=== PATIENT | female | born 1965 | race Caucasian/White ===

== ENCOUNTER 2016-04-09 06:10 | Emergency (ER) | payer BC ==
[~2016-04-09] VITALS: Ht 167.6 cm; Wt 91.9 kg
[~2016-04-09 06:10] MED LIST: AMLODIPINE BESY10 MG PO; ASPIRIN325 MG PO; BENICAR HCT 401 EACH PO; CELECOXIB200 MG PO; CYANOCOBALAM1000 MCG PO; ELIQUIS5 MG PO; ENDOCET 5-3251 EACH PO; FOLIC ACID PO; FOLIC ACID0.4 MG PO; FOLIC ACID0.8 MG PO; IBUPROFEN800 MG PO; LIPITOR10 MG PO; LIPITOR20 MG PO; LO-DOSE ASPIRIN81 M2 PO; LOPRESSOR25 MG PO; LOPRESSOR50 MG PO; METOPROLOL TART50 MG PO; NITROSTAT0.4 MG SL; OMEPRAZOLE20 M2 PO; POTASSIUM-9999 MG PO; PROGESTERONE200 MG PO; SOTALOL AF80 MG PO; SOTALOL80 MG PO; TRIBENZOR 20-51 EAC1 PO; TYLENOL EXTRA500 MG PO; VITAMIN B-12 PO; VITAMIN B12-FO1 EACH PO
[2016-04-09 07:04] LABS: HEMATOCRIT 42.1 % (36.0-46.0); MCH 29.7 PG (29.0-34.0); MCHC 34.2 G/DL (30.0-36.0); MCV 86.8 FL (83-99); MEAN PLAT.VOLUME 9.7 uM^3 (9.5-12.4); PLATELET COUNT 295 K/uL (156-360); RBC DIS.WIDTH-SD 37.5 % (39-53); RED BLOOD COUNT 4.85 M/uL (3.80-5.20); WHITE BLOOD COUNT 8.2 K/uL (4.1-10.2)
[2016-04-09 07:45] LABS: ANION GAP 8 MEQ/L (2-14); CHLORIDE 101 MEQ/L (99-109); GFR ESTIMATE (CALCULATED) > 59 mL/min/; GLUCOSE 120 mg/dL (70-99); POTASSIUM 3.6 MEQ/L (3.7-5.4); SAMPLE HEMOLYSIS CHECK 0; SAMPLE ICTERIC CHECK 0; SAMPLE LIPEMIA CHECK 0; SODIUM 137 MEQ/L (136-147); TROP-I INTERPRETATION NEGATIVE; TROPONIN-I < 0.01 ng/mL (0.0-0.30); UREA NITROGEN (BUN) 12 mg/dL (9-23)
[2016-04-09 08:46] VITALS: BP 117/69
== END 2016-04-09 08:47 | disposition home or self-care (01) ==
LOC: EME 06:10
PROVIDERS: Emergency Medicine
PROC: 5A2204Z Restoration of Cardiac Rhythm, Single (ICD-10-PCS; principal; 2016-04-09)
DX: I48.91 Unspecified atrial fibrillation (principal); I10 Essential (primary) hypertension; E78.5 Hyperlipidemia, unspecified; Z95.1 Presence of aortocoronary bypass graft; Z79.01 Long term (current) use of anticoagulants; Z79.82 Long term (current) use of aspirin
CPT/HCPCS: 80048; 84484; 85027; 93005; 99281; 99285

== ENCOUNTER 2016-05-07 20:31 | Emergency (ER) | payer BC ==
[~2016-05-07] VITALS: Ht 167.6 cm; Wt 94.2 kg
[2016-05-07 21:02] LABS: MCH 29.3 PG (29.0-34.0); MCHC 33.4 G/DL (30.0-36.0); MCV 87.8 FL (83-99); MEAN PLAT.VOLUME 9.7 uM^3 (9.5-12.4); PLATELET COUNT 359 K/uL (156-360); RBC DIS.WIDTH-CV 11.8 % (11.8-14.6); RBC DIS.WIDTH-SD 37.7 % (39-53); RED BLOOD COUNT 5.01 M/uL (3.80-5.20)
[2016-05-07 21:08] LABS: INTER. NORMALIZED RATIO 1.1; PROTHROMBIN TIME 10.8 (9.2-11.2); PTT 30.8 (25-32); WHITE BLOOD COUNT 12.3 K/uL (4.1-10.2)
[2016-05-07 21:09] LABS: CHLORIDE 101 mEq/L (99-109); POTASSIUM 3.4 mEq/L (3.7-5.4); SODIUM 140 mEq/L (136-147)
[2016-05-07 21:10] LABS: GLUCOSE 119 mg/dL (70-99)
[2016-05-07 21:12] LABS: ANION GAP 12 MEQ/L (2-14)
[2016-05-07 21:14] LABS: GFR ESTIMATE (CALCULATED) > 59 mL/min/
[2016-05-07 21:15] LABS: UREA NITROGEN (BUN) 15 mg/dL (9-23)
[2016-05-07 21:18] LABS: TROP-I INTERPRETATION NEGATIVE; TROPONIN-I < 0.01 ng/mL (0.0-0.30)
[2016-05-07 21:22] LABS: QUANTITATIVE HCG < 4.0 MIU/ML
[2016-05-07 23:35] VITALS: BP 126/80
== END 2016-05-07 23:40 | disposition home or self-care (01) ==
LOC: EME 20:31
PROVIDERS: Emergency Medicine
PROC: 5A2204Z Restoration of Cardiac Rhythm, Single (ICD-10-PCS; principal; 2016-05-07)
DX: I48.91 Unspecified atrial fibrillation (principal); E87.6 Hypokalemia; R00.2 Palpitations; I10 Essential (primary) hypertension; R06.02 Shortness of breath; E78.5 Hyperlipidemia, unspecified; Z79.01 Long term (current) use of anticoagulants; Z79.82 Long term (current) use of aspirin; Z95.1 Presence of aortocoronary bypass graft
CPT/HCPCS: 71010; 80048; 84484; 84702; 85027; 85610; 85730; 93005; 99281; 99285; J7040

== ENCOUNTER 2016-06-18 19:20 | Emergency (ER) | payer BC ==
[~2016-06-18] VITALS: Ht 167.6 cm; Wt 92.0 kg
[2016-06-18 19:53] LABS: HEMATOCRIT 46.5 % (36.0-46.0); MCH 29.5 PG (29.0-34.0); MCHC 33.8 G/DL (30.0-36.0); MCV 87.4 FL (83-99); MEAN PLAT.VOLUME 9.5 uM^3 (9.5-12.4); PLATELET COUNT 349 K/uL (156-360); RBC DIS.WIDTH-CV 12.2 % (11.8-14.6); RBC DIS.WIDTH-SD 38.9 % (39-53); RED BLOOD COUNT 5.32 M/uL (3.80-5.20); WHITE BLOOD COUNT 11.3 K/uL (4.1-10.2)
[2016-06-18] MEDS ORDERED: KLOR-CON SPRINK8 MEQ PO (19:56)
[2016-06-18 20:05] LABS: CHLORIDE 102 mEq/L (99-109); POTASSIUM 3.7 mEq/L (3.7-5.4); SODIUM 139 mEq/L (136-147)
[2016-06-18 20:07] LABS: GLUCOSE 146 mg/dL (70-99)
[2016-06-18 20:08] LABS: ANION GAP 13 MEQ/L (2-14)
[2016-06-18 20:11] LABS: GFR ESTIMATE (CALCULATED) > 59 mL/min/
[2016-06-18 20:12] LABS: UREA NITROGEN (BUN) 11 mg/dL (9-23)
[2016-06-18 20:18] LABS: TROP-I INTERPRETATION NEGATIVE; TROPONIN-I < 0.01 ng/mL (0.0-0.30)
[2016-06-18 20:25] LABS: INTER. NORMALIZED RATIO 1.1; PROTHROMBIN TIME 10.7 (9.2-11.2); PTT 31.6 (25-32)
[2016-06-18 23:47] LABS: TROP-I INTERPRETATION NEGATIVE; TROPONIN-I 0.08 ng/mL (0.0-0.30)
[2016-06-19 00:10] VITALS: BP 117/96
== END 2016-06-19 00:11 | disposition home or self-care (01) ==
LOC: EME 19:20
PROVIDERS: Emergency Medicine
PROC: 5A2204Z Restoration of Cardiac Rhythm, Single (ICD-10-PCS; principal; 2016-06-18)
DX: I48.91 Unspecified atrial fibrillation (principal); I10 Essential (primary) hypertension; E78.5 Hyperlipidemia, unspecified; Z95.1 Presence of aortocoronary bypass graft; Z79.01 Long term (current) use of anticoagulants; Z79.82 Long term (current) use of aspirin
CPT/HCPCS: 71020; 80048; 84484; 85027; 85610; 85730; 93005; 99281; 99285; J7040